=== PATIENT | female | born 1995 | race Caucasian/White ===

== ENCOUNTER → 2018-02-06 | Outpatient (CLI) | payer OTHER | END | disposition home or self-care (01) | LOC: LAB 07:31 | DX: N92.0 Excessive and frequent menstruation with regular cycle (principal); E28.2 Polycystic ovarian syndrome; E03.9 Hypothyroidism, unspecified ==

== ENCOUNTER 2018-02-19 10:13 | Outpatient (CLI) | payer OTHER | END 2018-02-19 10:15 | disposition home or self-care (01) | LOC: LAB 10:13 | DX: N91.0 Primary amenorrhea (principal) ==

== ENCOUNTER 2018-11-17 14:40 | Emergency (ER) | payer OTHER ==
[~2018-11-17] VITALS: Ht 157.5 cm; Wt 65.8 kg
[2018-11-17] MEDS ORDERED: NIKKI 3 MG-0.01 EACH PO (14:46)
== END 2018-11-17 16:49 | disposition home or self-care (01) ==
LOC: ER 14:40
DX: S51.011A Laceration without foreign body of right elbow, initial encounter (principal); W18.09XA Striking against other object with subsequent fall, initial encounter; Y93.89 Activity, other specified; Y92.098 Other place in other non-institutional residence as the place of occurrence of the external cause; Y99.8 Other external cause status